=== PATIENT | female | born 1950 ===

== ENCOUNTER 2022-09-14 10:45 | Inpatient (IN) | payer OTHER ==
[2022-09-14] MEDS ORDERED: TELMISARTAN-HC1 EAC2 PO (10:59)
[2022-09-14] MEDS ORDERED: ROSUVASTATIN CA10 MG PO (11:00)
[2022-09-14] MEDS ORDERED: DILTIAZEM ER180 M3 PO (11:00)
[2022-09-14] MEDS ORDERED: LOVAZA1 GM PO (11:00)
== END 2022-09-22 13:11 | DRG 470 ==
LOC: O/R 09-20 07:44 → SURG 09-20 07:44
PROVIDERS: ADMIT Orthopaedic Surgery; ATTEND Orthopaedic Surgery
PROC: 0SRC0JZ Replacement of Right Knee Joint with Synthetic Substitute, Open Approach (ICD-10-PCS; principal; 2022-09-20 11:00)
DX: M17.11 Unilateral primary osteoarthritis, right knee (principal); M85.661 Other cyst of bone, right lower leg

== ENCOUNTER 2024-03-22 11:46 | Outpatient (CLI) | payer OTHER ==
[~2024-03-22 11:46] MED LIST: DILTIAZEM ER180 M3 PO; LOVAZA1 GM PO; ROSUVASTATIN CA10 MG PO; TELMISARTAN-HC1 EAC2 PO
== END 2024-03-22 11:53 | disposition home or self-care (01) ==
LOC: SONOGRAMA 11:46
DX: E04.1 Nontoxic single thyroid nodule (principal)